=== PATIENT | female | born 1990 | race Caucasian/White ===

== ENCOUNTER 2017-10-23 11:01 | Day surgery (SDC) | payer OTHER, SELFPAY ==
[2017-10-23 11:22] VITALS: BP 103/59; PULSE 71; RESP 15; TEMP 37.1; O2SAT 100
[2017-10-23 11:23] VITALS: BMI 25.2
[2017-10-23] MEDS: SODIUM CHLORIDE 0.9% 1,000 ML 200 ML IV (11:37)
--- NOTE | 2017-10-23 11:55 | PM.PREOP ---
Pre-operative Note Interval Note Pre-op Check: History & Physical Reviewed by Physician and Exam Performed ASA Class (for procedural sedation): I
[2017-10-23] MEDS: MIDAZOLAM 5 MG/5 ML VIAL IV (13:21)
[2017-10-23] MEDS: fentaNYL 250 MCG/5 ML INJ IV (13:22)
[2017-10-23 13:29] VITALS: BP 91/50; PULSE 65; RESP 11; TEMP 36.6; O2SAT 95
[2017-10-23 13:33] VITALS: BP 97/61; PULSE 64; RESP 11
--- NOTE | 2017-10-23 13:33 | PM.OP.ENDO ---
Operative Date/Time/Diagnoses - Date of procedure: 10/23/17 Time of procedure: 13:33 Pre-op diagnosis: Abnormal CT with continued abdominal pain Post-op diagnosis: same Procedure & Clinicians Study performed: Colonoscopy Same procedure as scheduled: Yes Indications: Abnormal CT Surgeon: Esau Obando Procedure Notes Procedure in detail: After informed consent was obtained the patient was placed in the left lateral decubitus position. The colonoscope was introduced the rectum and slowly advanced to the cecum. Ic valve was identified and intubated. On slow withdrawal the mucosa was carefully examined. Scope was removed. The patient tolerated the procedure well. Blood loss none Complications none Findings 1. Normal terminal ileum 2. Normal colonoscopy to cecum other than 1 diverticulum seen in the cecum. Certainly there is no reason for her continued abdominal discomfort and bloating as witnessed on this procedure. She could have had cecal diverticulitis but certainly this is completely resolved. We will merely see how she does in the 1-2 weeks following colonoscopy and she will call me by telephone to let me know how she is doing. Scope withdrawal time: na Sedation minutes: 20 Specimen(s): none sent Complications: none
[2017-10-23 13:37] VITALS: BP 95/59; PULSE 75; RESP 11; TEMP 36.2; O2SAT 96
== END 2017-10-23 13:50 | disposition home or self-care (01) ==
PROVIDERS: PCP Physician Assistant Medical; Visit Provider Internal Medicine Gastroenterology
PROC: 0DJD8ZZ Inspection of Lower Intestinal Tract, Via Natural or Artificial Opening Endoscopic (ICD-10-PCS; CPT 45378; principal; 2017-10-23 12:30)
DX: R10.9 Unspecified abdominal pain (principal); R93.8 Abnormal findings on diagnostic imaging of other specified body structures; Z87.891 Personal history of nicotine dependence
CPT/HCPCS: 45378; J2250; J3010